=== PATIENT | female | born 1965 | race Two or more races ===

== ENCOUNTER 2020-01-17 19:36 | Emergency (ER) | payer MEDICAID, OTHER ==
[~2020-01-17] VITALS: Ht 160 cm; Wt 72.6 kg
[~2020-01-17 19:36] MED LIST: ENALAPRIL; IMMITREX; PRILOSEC
[2020-01-17 20:00] VITALS: BP 131/81
[2020-01-17] MEDS ORDERED: SODIUM CHLORIDE 0.9% 1,000 ML IV ONE (20:15)
[2020-01-17] MEDS ORDERED: ONDANSETRON HCL 4 MG/2 ML VIAL IV ONE (20:15)
[2020-01-17] MEDS ORDERED: MORPHINE SULFATE 4 MG/ML SYR/VIAL IV ONE (20:15)
[2020-01-17 20:20] LABS: Basophils # (auto) 0 10 ^3/uL (0-0.2); Basophils % (auto) 0.7 % (0.0-2.0); Eosinophils # (auto) 0.1 10 ^3/uL (0-0.8); Eosinophils % (auto) 1.3 % (0.0-7.0); Hematocrit 41.5 % (36.0-46.0); Hemoglobin 13.8 g/dL (12.2-16.2); Lymphocytes # (auto) 1.6 10 ^3/uL (0.4-5.4); Lymphocytes % (auto) 26.2 % (10.0-50.0); Mean Corpuscular Hemoglobin 29.5 pg (28.0-32.0); Mean Corpuscular Hgb Conc. 33.2 g/dL (32.0-36.0); Mean Corpuscular Volume 88.8 fL (80.0-100.0); Monocytes # (auto) 0.5 10 ^3/uL (0-1.3); Monocytes % (auto) 8.6 % (0.0-12.0); Neutrophils % (auto) 63.2 % (37.0-80.0); Nucleated Red Blood Cells % 0.1 %; Platelet Count (auto) 295 10^3/uL (140-450); Red Blood Cells 4.68 10^6/uL (4.0-5.20); Red Cell Distribution Width 13.5 % (11.8-14.3); White Blood Cell 6.3 10^3/uL (4.4-10.8)
[2020-01-17] MEDS ORDERED: KETOROLAC TROMETH 30 MG/ML 1ML VIAL IV ONE (20:30)
[2020-01-17 20:44] LABS: Albumin 3.8 g/dL (3.4-5.0); Calcium 9.4 mg/dL (8.5-10.1); Potassium 3.3 mmol/L (3.5-5.1)
[2020-01-17 20:49] LABS: BUN/Creatinine Ratio 7.4; Bilirubin, Total 0.6 mg/dL (0.2-1.0); Total Protein 7.9 g/dL (6.4-8.2)
[2020-01-17] MEDS ORDERED: cefTRIAXone 1GM/50ML D5W 50 ML IV ONE (22:15)
[2020-01-17 22:30] LABS: Urine Bacteria NONE SEEN /hpf (None Seen); Urine Blood Negative /uL (Negative); Urine Specific Gravity 1.004 (1.001-1.035); Urine WBC 48 /hpf (0 - 5)
== END 2020-01-17 22:54 | disposition home or self-care (01) ==
LOC: ER 19:36
DX: N39.0 Urinary tract infection, site not specified (principal); N28.1 Cyst of kidney, acquired; Z88.0 Allergy status to penicillin
CPT/HCPCS: 36415; 74176; 80053; 81001; 83690; 85025; 96365; 96375; 99284; J0696; J1885; J2405; J7030

== ENCOUNTER 2025-01-02 02:06 | Emergency (ER) | payer MEDICAID, OTHER ==
[~2025-01-02] VITALS: Ht 160 cm; Wt 64.4 kg
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
[2025-01-02] MEDS: KETOROLAC TROMETH 60MG/2ML VIAL IM ONE (03:24)
[2025-01-02] MEDS: HYDROcodone-ACET 5/325MG TAB PO ONE (03:25)
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
[2025-01-02] MEDS ORDERED: METH4PAK PO (04:38)
[2025-01-02] MEDS ORDERED: TIZA-142 PO (04:38)
[2025-01-02 04:48] VITALS: BP 138/82; PULSE 75; TEMP 98.1
[2025-01-02 04:53] VITALS: RESP 16; O2SAT 96
--- NOTE | 2025-01-03 12:41 | ECG ---
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
== END 2025-01-02 05:17 | disposition home or self-care (01) ==
LOC: EDBD 02:06 → ER 02:06
DX: S13.4XXA Sprain of ligaments of cervical spine, initial encounter (principal); S20.214A Contusion of middle front wall of thorax, initial encounter; Z90.49 Acquired absence of other specified parts of digestive tract; Z90.710 Acquired absence of both cervix and uterus; Z88.0 Allergy status to penicillin; V89.2XXA Person injured in unspecified motor-vehicle accident, traffic, initial encounter; Y93.I9 Activity, other involving external motion; Y92.488 Other paved roadways as the place of occurrence of the external cause; Y99.8 Other external cause status
CPT/HCPCS: 71250; 72125; 93005; 96372; 99285; J1885